=== PATIENT | female | born 2000 | race Caucasian/White ===

== ENCOUNTER 2019-04-19 17:27 | Emergency (ER) | payer BC, MEDICAID ==
[2019-04-19] MEDS ORDERED: hydrOXYzine HCl 25 MG Tab PO ONE (17:45)
--- NOTE | 2019-04-19 17:56 | EDM.PDOC ---
ED HPI GENERAL MEDICAL PROBLEM - General Chief Complaint: General Stated Complaint: ALLERGIC REATION Time Seen by Provider: 04/19/19 17:35 Source of Information: Reports: Patient History Limitations: Reports: No Limitations - History of Present Illness INITIAL COMMENTS - FREE TEXT/NARRATIVE: Patient comes into the emergency department with complaint of allergic reaction. Patient currently states she has a resolution of the hives that had formed. the hives were present on her hands and thighs prior to arrival. Patient states that the hives have been intermittent and appearing spontaneously over the course of the last 2 months. She is unable to pinpoint or localize any triggers that could be causing the reaction. She denies any recent changes in her diet, herbal remedies, illicit drugs, or change in detergent. Patient also states she eats very simplistic-well cooked food and does not eat out often. 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 Patient states that the reason she presented to the emergency department today versus any other days while she was working she developed the hives and she did begin to develop some chest discomfort. She states that when she is taking a deep breath the pain did intensify when she was sitting and resting the pain dissipated. Her boss did suggest that she reports the ER. By the time she responded to the ER she states the hives have dissipated and longer present. She also states that the test tightness is gone however she does still feel fatigued and tired. That she has a history of anxiety. She states that she does sometimes excessively worry about things that she shouldn' t. Pt denies taking any medication prior to arrival to help clear the hives. She states they often go away on there own after about 30-40 minutes but at times the itching of the skin can last for a few hours. Onset: Gradual Quality: Reports: Other Severity: Mild Improves with: Reports: None Worsens with: Reports: None Context: Reports: Other Associated Symptoms: Reports: No Other Symptoms - Related Data Allergies Allergy/AdvReac Type Severity Reaction Status Date / Time amoxicillin Allergy Hives Verified 04/07/18 20:22 Home Meds: Home Meds Azithromycin [Zithromax] 250 mg PO DAILY 3 Days #3 tab 04/07/18 [Rx] hydrOXYzine HCL [Hydroxyzine HCl] 25 mg PO Q4HR PRN #15 tablet 04/19/19 [Rx] Past Medical History - Past Health History Medical/Surgical History: Denies Medical/Surgical History ED ROS GENERAL - Review of Systems Review Of Systems: Comprehensive ROS is negative, except as noted in HPI. Constitutional: Reports: No Symptoms HEENT: Reports: No Symptoms Respiratory: Reports: No Symptoms Cardiovascular: Reports: No Symptoms Endocrine: Reports: No Symptoms GI/Abdominal: Reports: No Symptoms : Reports: No Symptoms Musculoskeletal: Reports: No Symptoms Skin: Reports: No Symptoms Neurological: Reports: No Symptoms Psychiatric: Reports: No Symptoms Hematologic/Lymphatic: Reports: No Symptoms Immunologic: Reports: No Symptoms ED EXAM, GENERAL - Physical Exam Exam: See Below Exam Limited By: No Limitations General Appearance: Alert, WD/WN, No Apparent Distress Eye Exam: Bilateral Eye: EOMI, PERRL Nose: Normal Inspection, Normal Mucosa, No Blood Throat/Mouth: Normal Inspection, Normal Lips Head: Atraumatic, Normocephalic Neck: Normal Inspection, Supple, Non-Tender, Full Range of Motion Respiratory/Chest: No Respiratory Distress, Lungs Clear, Normal Breath Sounds, No Accessory Muscle Use, Chest Non-Tender Cardiovascular: Normal Peripheral Pulses, Regular Rate, Rhythm, No Edema GI/Abdominal: Normal Bowel Sounds, Soft, Non-Tender, No Distention Extremities: Normal Inspection, Normal Range of Motion, Non-Tender Neurological: Alert, Oriented, Normal Gait Psychiatric: Normal Affect, Normal Mood Skin Exam: Warm, Dry, Intact, Normal Color Course - Orders/Labs/Meds Meds: Medications Discontinued Medications Generic Name Dose Route Start Last Admin Trade Name Freq PRN Reason Stop Dose Admin Hydroxyzine HCl 50 mg 04/19/19 17:45 Atarax PO 04/19/19 17:46 ONETIME ONE Departure - Departure Time of Disposition: 18:00 Disposition: Home, Self-Care 01 Condition: Good Clinical Impression: Allergic reaction Qualifiers: Encounter type: initial encounter Qualified Code(s): T78.40XA - Allergy, unspecified, initial encounter - Discharge Information *PRESCRIPTION DRUG MONITORING PROGRAM REVIEWED*: Not Applicable *COPY OF PRESCRIPTION DRUG MONITORING REPORT IN PATIENT SHRUTI: Not Applicable Prescriptions: hydrOXYzine HCL [Hydroxyzine HCl] 25 mg PO Q4HR PRN #15 tablet PRN Reason: Itching Instructions: Allergies, Adult, [id number], Hydroxyzine capsules or tablets Forms: ED Department Discharge Additional Instructions: 1. rest 2. increase water intake 3. Take hydroxyzine as needed every 4 hours if rash appears 4. Keep a log to show your primary care provider regardin time a day the rash began, events leading up to the rash, where you were at, last food and beverage item consumed, and any external stressors that may be going on around the time 5. Activity and diet as tolerated 6. Follow-up with her primary care provider to show him the log and further medical management 7. Return to the emergency department if symptoms progress or do not improve with the use of hydroxyzine or Benadryl 8. Also take a daily Claritin to help with allergic reaction 9. Please call with any questions or concerns - Assessment/Plan Assessment:: 1. allergic reaction Plan: 1. Discussion regarding keeping a log regarding when reactions occur to provide to her primary care provider 2. Hydroxyzine was also given to the patient along with a prescription to help with acute rash 3. Also discussed with the patient the possibility this may be related to anxiety. Also requested that she keep a log regarding her emotions around when the rash forms 4. Education regarding regarding activity and diet and follow-up care 5. All questions and concerns were addressed prior to patient discharge
== END 2019-04-19 18:06 | disposition home or self-care (01) ==
LOC: VM.ED 17:27
DX: T78.40XA Allergy, unspecified, initial encounter (principal); Z88.1 Allergy status to other antibiotic agents
CPT/HCPCS: 99283; A9270